=== PATIENT | female | born 1990 | race Caucasian/White ===

== ENCOUNTER → 2024-03-12 | Outpatient (REF) | payer BC, SELFPAY | LOC: DHSLP | PROVIDERS: ATTENDING PHYSICIAN Internal Medicine Critical Care Medicine; FAMILY PHYSICIAN Internal Medicine | DX: G47.30 Sleep apnea, unspecified (principal); R06.83 Snoring | CPT/HCPCS: 95800 ==

== ENCOUNTER 2025-01-09 10:57 | Emergency (ER) | payer BC, SELFPAY ==
[2025-01-09 11:17] VITALS: BP 135/90
--- NOTE | 2025-01-09 12:29 | ED.GENMED ---
History of Present Illness
<CANDY Camp - Last Filed: 01/09/25 14:50>
General
Chief Complaint: Headache
Source: patient
Exam Limitations: none
Time Seen by Provider: 01/09/25 12:23
Nursing documentation reviewed up to this point in time: agreed with
History of Present Illness
History of Present Illness:
Patient is a 34-year-old female who presented to the ER for evaluation. Patient was in [place] and on Tuesday night started to feel sick, headache chills body aches neck pain and sore throat. Symptoms have persisted. She is allergic and has
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 She complains of persistent headache and neck pain and was seen by urgent care who recommended she come to the ER to rule out meningitis
She last took Tylenol around 9 AM. She does have a headache she does have neck soreness she does feel minimal light sensitivity. She does have mild sore throat but reports has had worse sore throats in the past..
Review of Systems
<CANDY Camp - Last Filed: 01/09/25 14:50>
Review of Systems
Allergies reviewed?: Yes
Other source history: family
All Other Systems: ROS reviewed and negative except as documented in HPI and ROS
Constitutional: Reports chills
EENT: Reports sore throat
Respiratory: Reports no symptoms
Cardiac: Reports no symptoms
ABD/GI: Reports no symptoms; Denies nausea or vomiting
Musculoskeletal: Reports neck pain
Skin: Reports no symptoms
Neurological: Reports headache
Psychiatric: Reports no symptoms
Phy Exam
<CANDY Camp - Last Filed: 01/09/25 14:50>
General Physical Exam
General Presentation: no apparent distress
General age: appears stated age
General Skin: warm and dry
General Habitus: normal
General Mental: alert
General Hydration: appears well hydrated
ENT Exam
ENT Exam: EOMI, neck supple, pharyngeal erythema and other (no exudate to throat uvula midilne no drooling + mild anterior cervical lymph nodes )
Eye Exam
Eye Exam: PERRL and EOMI
Eye Exam General: PERRL: bilateral and EOM intact: bilateral
Pupil Exam: Bilateral: round and reactive
Cardiovascular Exam
Cardiovascular Exam: regular rate/rhythm, no murmur and normal peripheral pulses
Pulmonary Exam
Pulmonary Exam: lungs clear and no respiratory distress
Neurological Exam
Neurological Exam: alert and oriented x3
Musculoskeletal Exam
Musculoskeletal Exam: full ROM
Skin Exam
Skin Exam: normal color and warm/dry
Psychiatric Exam
Psychiatric Exam: normal mood/affect
Course
<CANDY Camp - Last Filed: 01/09/25 14:50>
Orders/Labs/Results
Orders:
Orders
01/09/25 12:38
IV Insert/Care/Rem.- Treatment PRN
0.9% Sodium Chloride 1000 ml [Nss] 1,000 ml IV BOLUS
01/09/25 13:04
COVID-19 Antigen Urgent
Source: Nasal Swab
Complete Blood Count/With Diff Urgent
Comprehensive Metabolic Panel Urgent
Influenza A+B Rapid Molecular Urgent
[facility] Source: Nasal Swab
Specimen Description:
Rapid Strep Group A Urgent
MAR[facility] Source: Throat/Pharynx
Specimen Description:
Date Specimen was Collected: 01/09/25
Time Specimen was Collected: 12:58
01/09/25 14:19
Add On - Microbiology Urgent
Tests Added?: throat culture
01/09/25 14:20
Add On- LAB Urgent
Tests Added?: monotest
01/09/25 14:26
Throat Culture, Comprehensive Urgent
[facility] Source: Throat/Pharynx
Specimen Description:
Date Specimen was Collected: 01/09/25
Time Specimen was Collected: 14:38
Abnormal Lab Results
01/09/25
13:04
WBC 16.4 H 10^3/uL
(4.8-10.8)
Abs Immat Gran (auto) 0.1 H 10^3/uL
(0-0.05)
Absolute Neuts (auto) 13.6 H 10^3/uL
(1.4-6.5)
Absolute Monos (auto) 0.8 H 10^3/uL
(0.1-0.6)
Neutrophils % 82.9 H %
(42.2-75.2)
Lymphocytes % 11.3 L %
(20.5-51.1)
BUN 6 L mg/dl
(7-17)
Glucose 103 H mg/dl
(70-99)
01/09/25 13:04
01/09/25 13:04
Vital Signs
Initial and Last Documented VS:
Initial Vital Signs
Temp Pulse Resp BP Pulse Ox
98.5 F 100 18 135/90 99
01/09/25 11:17 01/09/25 11:17 01/09/25 11:17 01/09/25 11:17 01/09/25 11:17
Last Documented Vital Signs
Temp Pulse Resp BP Pulse Ox
98.5 F 78 18 124/74 98
01/09/25 11:17 01/09/25 13:47 01/09/25 13:47 01/09/25 13:47 01/09/25 13:47
Firestop/Containment Worker consulted with Physician
Firestop/Containment Worker consulted with physician?: Yes
Name of Physician Consulted: Shanita
<Deandra Diehl MD - Last Filed: 01/09/25 14:30>
Orders/Labs/Results
Orders:
Orders
01/09/25 12:38
IV Insert/Care/Rem.- Treatment PRN
0.9% Sodium Chloride 1000 ml [Nss] 1,000 ml IV BOLUS
01/09/25 13:04
COVID-19 Antigen Urgent
Source: Nasal Swab
Complete Blood Count/With Diff Urgent
Comprehensive Metabolic Panel Urgent
Influenza A+B Rapid Molecular Urgent
MAR[facility] Source: Nasal Swab
Specimen Description:
Rapid Strep Group A Urgent
MAR[facility] Source: Throat/Pharynx
Specimen Description:
Date Specimen was Collected: 01/09/25
Time Specimen was Collected: 12:58
01/09/25 14:19
Add On - Microbiology Urgent
Tests Added?: throat culture
01/09/25 14:20
Add On- LAB Urgent
Tests Added?: monotest
01/09/25 14:26
Throat Culture, Comprehensive Urgent
[facility] Source: Throat/Pharynx
Specimen Description:
Date Specimen was Collected: 01/09/25
Time Specimen was Collected: 14:38
Abnormal Lab Results
01/09/25
13:04
WBC 16.4 H 10^3/uL
(4.8-10.8)
Abs Immat Gran (auto) 0.1 H 10^3/uL
(0-0.05)
Absolute Neuts (auto) 13.6 H 10^3/uL
(1.4-6.5)
Absolute Monos (auto) 0.8 H 10^3/uL
(0.1-0.6)
Neutrophils % 82.9 H %
(42.2-75.2)
Lymphocytes % 11.3 L %
(20.5-51.1)
BUN 6 L mg/dl
(7-17)
Glucose 103 H mg/dl
(70-99)
01/09/25 13:04
01/09/25 13:04
Vital Signs
Initial and Last Documented VS:
Initial Vital Signs
Temp Pulse Resp BP Pulse Ox
98.5 F 100 18 135/90 99
01/09/25 11:17 01/09/25 11:17 01/09/25 11:17 01/09/25 11:17 01/09/25 11:17
Last Documented Vital Signs
Temp Pulse Resp BP Pulse Ox
98.5 F 78 18 124/74 98
01/09/25 11:17 01/09/25 13:47 01/09/25 13:47 01/09/25 13:47 01/09/25 13:47
<CANDY Camp - Last Filed: 01/09/25 14:50>
MDM/Problems Addressed
Differential Diagnosis Includes:
Not limited to COVID, flu, strep, viral syndrome less likely meningitis
MDM/Problems Addressed:
Patient is non toxic appearing no evidence of meningismus. She is in no acute distress repeat temp here done by ED physician is 97 she has not taken Tylenol since early in the morning. Patient's COVID rapid strep and influenza came back negative
patient throat culture was sent to the lab as well. She has mild swollen lymph node throat is mildly red however no meningismus. Her white count is minimally elevated electrolytes are normal likely viral syndrome. Patient evaluated by ED
physician agrees with assessment and plan will DC home with supportive care. She is unable to take NSAIDs due to angioedema will patient increase fluids, she was given fluids here and take Tylenol at home as needed discussed however very close
prompt to be followed by family doctor
<CANDY Camp - Last Filed: 01/09/25 14:50>
*Critical Care Note
Total Time (30-74mins, 75-104mins- exclusive of procedures): Not Applicable
ED Attending Note
<CANDY Camp - Last Filed: 01/09/25 14:50>
-
Portions of this chart may have been created with voice recognition software.� Occasional wrong word or��sound alike� substitutions may have occurred due to the inherent limitations of voice recognition software.
<Deandra Diehl MD - Last Filed: 01/09/25 14:30>
ED Attending Note
Patient seen and examined by attending physician: Yes
I performed the substantive portion of visit, reviewed & personally made and approve the management plan that is documented in note by myself or SHASTA.: Yes
ED Attending Note:
Patient appears nontoxic and well. She is conversational. She reports headache and mild neck pain but is able to fully range her neck around with minimal discomfort. She is able to fully sit up and bring her chin down to her chest with little to
no discomfort. We did discuss doing a spinal tap, however, given she looks so well, she is comfortable and would rather not undergo this. Patient likely has viral illness.
Patient reports he has not had Tylenol since 9 AM this morning. She has had no other medication that would lower her body temperature and I personally checked her temperature and it is now 97.5 orally. Patient told that she should be reassessed by
her primary care doctor in 1 to 2 days. Patient told to return with any worsening symptoms such as worsening headache or worsening neck pain or worsening neck stiffness
Discharge Plan
Departure
Patient Disposition: Home (Routine Discharge)
Date of Disposition: 01/09/25
Time of Disposition: 14:48
Patient with high blood pressure during this ER visit?: Yes
Covid-19: Not Applicable
Discharge Problem:
Acute viral syndrome, Acute sore throat
Instructions: Sore Throat - Adult
Referrals:
Ale Swann DO [Family Provider] -
Activity Restrictions/Additional Instructions:
As discussed please stay well-hydrated. You may take Tylenol for symptoms. Please follow-up with your family doctor in the next 2 days for recheck. Return if any worsening of symptoms. A repeat throat culture was sent to the lab you will be
notified if it is positive .
Be sure to get plenty of rest
Return if any worsening of symptoms including worsening headache fevers blurry vision or any further concerns
Interventions
Interventions:
*Risk Screen - Suicide Last Done: 01/09/25 11:17
*General Assessment Last Done: 01/09/25 11:17
*Neglect/Abuse Screening Last Done: 01/09/25 11:17
*ED- Fall Risk Assessment Last Done: 01/09/25 13:47
*ED COVID-19 Vaccine History Last Done: 01/09/25 13:47
ED- Neurological Assessment Last Done: 01/09/25 13:47
Discharge Date and Time
Print Language: CZECH
[2025-01-09] MEDS: NSS 1000 IV (13:10)
[2025-01-09 13:21] LABS: % Basophils 0.2 % (0-2); % Eosinophils 0.1 % (0-6); % Immature Granulocytes 0.4 % (0-0.5); % Lymphocytes 11.3 % (20.5-51.1); % Monocytes 5.1 % (1.7-9.3); % Neutrophils 82.9 % (42.2-75.2); Absolute Immature Granulocytes 0.1 10^3/uL (0-0.05); Absolute Lymphocytes 1.9 10^3/uL (1.2-3.4); Absolute Monocytes 0.8 10^3/uL (0.1-0.6); Absolute Neutrophils 13.6 10^3/uL (1.4-6.5); Hemoglobin 12.6 g/dL (12.0-16.0); Mean Corp Hgb Conc. 33.2 g/dL (33.0-37.0); Mean Corpuscular Hgb 29.9 pg (27.0-31.0); Mean Platelet Volume 9.9 fL (7.4-10.4); Nucleated Red Blood Cells % 0 %; Platelet Count 282 10^3/uL (130-400); Red Blood Cell Count 4.22 10^6/uL (4.20-5.40); Red Cell Dist. Width 12.8 % (11.5-14.5); White Blood Cell Count 16.4 10^3/uL (4.8-10.8)
[2025-01-09 13:36] LABS: COVID-19 Antigen Negative (Negative)
[2025-01-09 13:37] LABS: ALT (SGPT) 13 U/L (0-35); AST (SGOT) 15 U/L (14-36); Albumin 3.8 g/dl (3.5-5.0); Alkaline Phosphatase 62 U/L (38-126); Blood Urea Nitrogen 6 mg/dl (7-17); Calcium 8.9 mg/dl (8.4-10.2); Carbon Dioxide 28 mmol/L (22-30); Chloride 105 mmol/L (98-107); Glucose 103 mg/dl (70-99); Potassium 4.4 mmol/L (3.5-5.1); Sodium 139 mmol/L (135-145); Total Bilirubin 0.7 mg/dl (0.2-1.3); Total Protein 6.3 g/dl (6.3-8.2); eGFR > 60.00
[2025-01-09 13:47] VITALS: BP 124/74
[2025-01-09 15:01] VITALS: BP 118/72
[2025-01-09 15:18] LABS: Monotest Negative (Negative)
== END 2025-01-09 15:08 | disposition home or self-care (01) ==
LOC: EMR 10:57
PROVIDERS: Nurse Practitioner; EMERGENCY PHYSICIAN Emergency Medicine; FAMILY PHYSICIAN Internal Medicine
DX: B34.9 Viral infection, unspecified (principal); J02.9 Acute pharyngitis, unspecified; Z88.6 Allergy status to analgesic agent; Z11.52 Encounter for screening for COVID-19
CPT/HCPCS: 96360; 99284; 80053; 85025; 86308; 87070; 87502; 87811; 87880

== ENCOUNTER → 2025-08-05 09:13 | Outpatient (REF) | payer BC, SELFPAY | LOC: PAVMRI 09:13 | PROVIDERS: ATTENDING PHYSICIAN Internal Medicine | DX: G44.52 New daily persistent headache (NDPH) (principal) | CPT/HCPCS: 70553; A9575 ==